=== PATIENT | female | born 1980 | race Caucasian/White ===

== ENCOUNTER 2016-07-23 19:32 | Emergency (ER) | payer OTHER, SELFPAY ==
[2016-07-23 19:56] LABS: Bilirubin Negative (Negative); Blood, Urine Trace (Negative); Clarity Clear (Clear); Glucose, Urine (Dipstick) Negative (Negative); Leukocyte Negative (Negative); Nitrite Negative (Negative); Protein, Urine (Dipstick) Negative (Neg-Trace)
[2016-07-23 19:59] LABS: Bacteria/HPF Rare-Few HPF (None Seen); Crystals/HPF None Seen HPF (Negative); Hyaline Casts/LPF NONE SEEN LPF (0-3 Hyaline); Other Casts/LPF None Seen LPF (0-3 Hyaline); Oval Fat Bodies/HPF None Seen HPF (None Seen); RBC/HPF 0-3 HPF (0-3); Renal Epithelial None Seen HPF (0-3); Sperm/HPF None Seen HPF (None Seen); Squamous Epithelial 0-3 HPF (0-3); Transitional Epithelial NONE SEEN HPF (0-3); Trichomonas/HPF None Seen HPF (None Seen); WBC/HPF None Seen HPF (0-3); Yeast-All Forms None Seen HPF (None Seen)
== END 2016-07-23 20:02 | disposition home or self-care (01) ==
LOC: BURERS 19:32
DX: O9A.211 Injury, poisoning and certain other consequences of external causes complicating pregnancy, first trimester (principal); S39.012A Strain of muscle, fascia and tendon of lower back, initial encounter; X50.0XXA Overexertion from strenuous movement or load, initial encounter; Z3A.08 8 weeks gestation of pregnancy; O13.1 Gestational [pregnancy-induced] hypertension without significant proteinuria, first trimester; O99.331 Smoking (tobacco) complicating pregnancy, first trimester; F17.210 Nicotine dependence, cigarettes, uncomplicated
CPT/HCPCS: 81003; 81015

== ENCOUNTER 2016-09-12 16:53 | Emergency (ER) | payer OTHER | END 2016-09-12 17:10 | disposition home or self-care (01) | LOC: BURERS 16:53 | DX: O9A.212 Injury, poisoning and certain other consequences of external causes complicating pregnancy, second trimester (principal); T21.12XA Burn of first degree of abdominal wall, initial encounter; X11.8XXA Contact with other hot tap-water, initial encounter; Z3A.16 16 weeks gestation of pregnancy; Z79.899 Other long term (current) drug therapy | CPT/HCPCS: 99283 ==

== ENCOUNTER 2017-03-12 09:48 | Emergency (ER) | payer OTHER ==
[2017-03-12] MEDS ORDERED: Bicillin CR 1.2 MILL UNITS/2 ML SYRINGE ONE (10:30)
== END 2017-03-12 10:45 | disposition home or self-care (01) ==
LOC: BURERS 09:48
DX: J02.9 Acute pharyngitis, unspecified (principal); Z87.891 Personal history of nicotine dependence
CPT/HCPCS: 96372; J0558

== ENCOUNTER 2017-03-15 17:30 | Emergency (ER) | payer OTHER | END 2017-03-15 17:54 | disposition home or self-care (01) | LOC: BURERS 17:30 | DX: J06.9 Acute upper respiratory infection, unspecified (principal); H65.192 Other acute nonsuppurative otitis media, left ear; F17.210 Nicotine dependence, cigarettes, uncomplicated | CPT/HCPCS: 99283 ==